=== PATIENT | male | born 1995 | race African-American/Black ===

== ENCOUNTER → 2017-10-19 12:09 | Outpatient (CLI) | payer MEDICAID, SELFPAY ==
--- NOTE | 2017-10-19 12:11 | XR_ITS ---
XR knee LT 3V HISTORY: ITS.REASON: knee pain ORDERING PHYSICIAN: Bev Kulkarni PATIENT AGE: 21 years COMPARISON: None FINDINGS: No fracture or dislocation. No lytic or blastic change. Normal mineralization. No significant arthritic changes evident. 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
== END ==
PROVIDERS: PCP Emergency Medicine; Visit Provider Nurse Practitioner Family
DX: M25.562 Pain in left knee (principal)
CPT/HCPCS: 73562

== ENCOUNTER → 2017-10-21 05:29 | Outpatient (REF) | payer MEDICAID, SELFPAY | LOC: LAB 05:29 | PROVIDERS: Visit Provider Emergency Medicine | DX: Z02.89 Encounter for other administrative examinations (principal) | CPT/HCPCS: 36415 ==

== ENCOUNTER → 2017-11-29 15:02 | Outpatient (REF) | payer MEDICAID, SELFPAY ==
[2017-12-04 19:20] LABS: Neisseria gonorrhoeae, NAA Negative (Negative)
== END ==
LOC: LAB 15:02
PROVIDERS: Visit Provider Nurse Practitioner Family
DX: Z20.2 Contact with and (suspected) exposure to infections with a predominantly sexual mode of transmission (principal)
CPT/HCPCS: 87491; 87591

== ENCOUNTER → 2017-11-30 13:03 | Outpatient (CLI) | payer MEDICAID, SELFPAY ==
--- NOTE | 2017-11-30 13:06 | MR_ITS ---
MR knee LT wo con Ordering Physician: Fred Laureano MD Patient Age: 22 years: Male HISTORY: ITS.REASON: INTERNAL DERANGEMENT OF LEFT KNEE Internal arrangement of the left knee. [place] a pop 2 months ago pain inferior to patella. Pain with extending knee . TECHNIQUE: Multiplanar multisequence imaging on 1.5 Nela MRI COMPARISON :Plain films and probably evident on these are frequently FINDINGS There is increased signal beneath the inferior margin of patella. This is most evident at of the mid and medial aspect patellar tendon insertion. The lateral insertion of patellar tendon appears to remain intact... . Findings do suggest partial tear along posterior aspect of patellar tendon, at its insertion upon inferior margin of patella.This appears to involve posterior aspect patellar tendon at its mid & medial insertion upon inferior patella. Scant bone edema along inferior margin of patella associated Cartilage at the posterior aspect patella is intact. Patellofemoral relationships appear normal. Quadriceps tendon intact Scant joint effusion ACL and PCL intact. The medial and lateral collateral ligaments intact. Medial and lateral meniscus intact. Medial and lateral compartment intact. Femoral condyles and tibial plateaus intact. ------IMPRESSION 1. Findings suggest partial tear along posterior aspect of patellar tendon, at its insertion upon inferior margin of patella. 2. Small joint effusion evident. 3. Otherwise knee unremarkable
== END ==
PROVIDERS: Family Provider Family Medicine; PCP Emergency Medicine; Visit Provider Family Medicine
DX: M23.92 Unspecified internal derangement of left knee (principal)
CPT/HCPCS: 73721

== ENCOUNTER 2017-12-07 10:30 | Outpatient (RCR) | payer MEDICAID, SELFPAY ==
--- NOTE | 2017-11-27 08:31 | [facility].PTOPEV ---
PT Outpatient Evaluation Rehab PT Outpatient Evaluation Start: 11/27/17 08:20 Freq: Status: Active Protocol: Document 11/27/17 08:21 CELESTINA (Rec: 11/27/17 08:31 CELESTINA [id number]) Electronically Signed By Gulshan Valenzuela, PT 11/27/17 08:21 Outpatient Therapy Subjective History Subjective History Pt reports insidious onset L knee pain beginning last year during basketball season. Pt reports severe exacerbation in July 2017, 'I had an episode where I jumped and felt a pop '. Pt reports improved L knee pain with 3 week eccentric training program, however, became painful again while playing bball ~3 weeks ago. MRI scheduled for 11/30/17 Chief Complaint Pain Symptom Type Ache Sharp Dull Symptoms Relieved By Ice OTC Meds Symptoms Aggravated By Physical Activity Prior Functional Limitations Recreation Activity Current Functional Limitations Recreation Activity Symptom Description Intermittent Level of pain today (0-10) 0 Pain scale - at its best (0-10) 0 Pain scale - at its worst (0-10) 7 Hip/Knee Eval Gait Observation General Gait Pattern Observation No Deviations/Normal Palpation Tenderness bilateral Knee Palpation Finding Tenderness Knee Palpation Overall Comment 3/4 bilateral patella tendon- insertion @ inferior pole MMT Hip Flexion Strength Grade 4 Good Hip Abduction Strength Grade 4- Good- Hip Adduction Strength Grade 4- Good- Hip Extension Strength Grade 4- Good- Hip External Rotation Strength Grade 4- Good- Hip Internal Rotation Strength Grade 4- Good- Knee Extension Strength Grade 4 Good Knee Flexion Strength Grade 5 Normal ROM Knee ROM Reason Not Measured Within Functional Limits Outpatient Therapy Assessment Impairments Problems/Impairmments Palpation Tenderness Impaired Strength Impaired Recreational Activities Impaired Running Impaired Jumping Subjective C/O Pain Impaired Self Care/Self Management Prognosis Rehab Potential Good Clinical Impression Consistent with Diagnosis Yes Short Term Goals Number of
== END 2017-12-07 10:31 | disposition home or self-care (01) ==
LOC: PT 10:30
PROVIDERS: Family Provider Family Medicine; PCP Emergency Medicine; Visit Provider Nurse Practitioner Family
DX: M25.562 Pain in left knee (principal)
CPT/HCPCS: 97010; 97014; 97016; 97033; 97035; 97110; 97112; 97140; 97163; G0283